=== PATIENT | female | born 1960 | race Two or more races ===

== ENCOUNTER 2019-08-12 07:14 | Outpatient (CLI) | payer OTHER | END 2019-08-12 07:25 | disposition home or self-care (01) | LOC: LAB 07:14 | DX: D50.8 Other iron deficiency anemias (principal); D51.8 Other vitamin B12 deficiency anemias; I10 Essential (primary) hypertension; D68.8 Other specified coagulation defects; M32.8 Other forms of systemic lupus erythematosus; D69.49 Other primary thrombocytopenia ==